=== PATIENT | male | born 1985 | race Caucasian/White ===

== ENCOUNTER 2016-05-26 20:17 | Emergency (ER) | payer OTHER ==
[~2016-05-26 20:17] MED LIST: AMOX-366 PO; CHLO60LI TP; HYDR25CA PO; LORA10CA PO; METH40TA2 PO; ONDA4VIA27 PO
[2016-05-26 20:21] VITALS: BP 143/92; PULSE 101; RESP 18; O2SAT 100
--- NOTE | 2016-05-26 20:43 | ED.REPORT ---
HPI-Extremity Problem Upper Date of Service May 26, 2016 ED Provider: Harvey Davis MD 30 year old male presents to the ED due to L arm pain/swelling this morning when he woke up. He reports tingling to the arm. He denies any known injury but thinks he may slept on the arm weird. Pt admits to feeling warm. Pt has a history of drug abuse but denies any recent IV or IM drug use. Nursing Notes Stated Complaint: PAIN IN LEFT ARM Chief Complaint: Extremity Trauma Nursing Notes Reviewed: Yes Allergies: Coded Allergies: codeine (Verified Adverse Reaction, Unknown, MOTHER SAYS, 04/16/16) Scheduled Amoxicillin/Clav K 875-125 mg (Augmentin 875-125 mg) 1 Each Tablet 1 TABLET PO BID Chlorhexidine Gluconate (Hand Wash) 2 % Liquid 60 ML TP DAILY Loratadine (Claritin) 10 Mg Capsule 10 MG PO DAILY Methadone (Methadone) 40 Mg Tablet.kelly 65 MG PO DAILY Scheduled PRN Hydroxyzine Pamoate (Vistaril) 25 Mg Capsule 25 MG PO HS PRN PRN For Insomnia Ondansetron PF (Ondansetron PF) 2 Mg/Ml Ml 4-8 MG PO Q4H PRN PRN For Nausea/ Vomiting General Time Seen by MD: 20:36 Chief Complaint Other (L arm pain) Hx Obtained From: Patient Arrived By: Walk-in Onset Occurred: 17 - 20 hours ago Symptom Duration: Since onset Location: : Arm left Quality: Painful Severity: Current: Moderate Associated with: Reports: Swelling, Denies: Vomiting Pertinent Negative: Relieved by nothing Past Medical History Past Medical History Nephrolithiasis methamphetamine abuse IVDA Hepatitis C with a history of an acute hepatitis infection Denies: Coronary artery disease, Diabetes mellitus Past Surgical History Denies Smoking History Current Every Day Smoker, Heavy Tobacco Smoker Social History 170 days clean from IV heroin as of 04/14/2016, Last used meth 2 weeks ago Alcohol Use: "Social" Drug Use: In recovery, IV drugs, Meth Other Social History: Good social support, Lives with children, Local resident Ambulatory Status Independent Review of Systems Basic Review of Systems Eyes: Vision NL, No discharge ENT: Hearing NL, No pain, No nasal congestion, No pharyngeal pain Psychiatric: Normal thought content Constitutional: Denies: Fever Musculoskeletal: Reports: Extremity pain, Extremity swelling, Denies: Neck pain Skin: Denies Diaphoresis, Denies Rash Complete sys rev & neg: except as marked. Physical Exam Initial Vital Signs Vital Signs (First) Date Time Temp Pulse Resp B/P Pulse Ox O2 Delivery O2 Flow Rate FiO2 05/26/16 20:21 37.2 101 18 143/92 100 Room Air Initial VS: Reviewed General/Constitutional: Well-developed, Well-nourished Head / Eyes: Atraumatic, Normocephalic, PERRL ENT: Conjunctiva normal, No scleral icterus Neck: Full range of motion Respiratory: No respiratory distress Cardiovascular: Intact distal pulses Lower Extremities: Vascular intact, Neuro intact Skin: Warm, Dry Neurologic: Alert, Oriented Psychiatric: Mood/affect normal, Normal thought content Upper Extremity / MS: Atraumatic, No swelling, Non-tender, No erythema, No deformity, Neurologic intact, Vascular intact Good billboard poster strength bilat. No signs of trauma. No swelling or erythema to the RUE. Re-Eval/Medical Decision Med Decision/Clinical Course Patient is a 30-year-old male with a history of heroin and methamphetamine abuse who presents with vague symptoms of pain and tingling sensation in his left arm after sleeping on top of his left arm last night. Examination reveals that he is neurovascularly intact without any signs of abscess, soft tissue infection or acute traumatic injury. Strength is intact in the extremity in the distal fingertips are warm and well perfused. He has full range of motion of the arm and there is no evidence of septic arthritis or other acutely concerning process. He reports pins and needle sensation though there are no objective neurologic deficits. I suspect these experiencing some degree of peripheral neurapraxia due to sleeping on top of his arm. Patient was given ibuprofen here in the emergency department and advised to return right away should his symptoms fail to improve or worsen. Follow-up and return precautions were reviewed in detail and he was discharged in good condition. Re-Evaluation/Progress : Time of Eval: 21:59 Re-Evaluation/Progress Note: No imaging indicated. Pt agrees. Pt declines pain medications. Discussed plan for discharge and follow up. All questions addressed. Counseled Regarding: Diagnosis, Need for follow-up, When/why to return to ED Discharge & Departure Impression: Primary Impression: Neuropraxia of left upper extremity Encounter type: initial encounter Qualified Code: S44.92XA - Injury of unspecified nerve at shoulder and upper arm level, left arm, initial encounter Additional Impression: Left arm pain Disposition: Home Discharge Condition All VS Reviewed: Yes Condition: Improved Additional Instructions: Thank you for seeking care at [facility] emergency room. It is difficult for us to make definitive diagnoses in the ED but we believe that you are experiencing neurapraxia of the left arm. Our primary goal today in the ED was to evaluate you for any life-threatening conditions. Your evaluation was reassuring. You can take ibuprofen for pain. You should follow-up with your primary doctor in the next week. You should return to the ER if your symptoms do not improve. Thank you for letting us partake in your care today. Referrals: [facility] (PCP) Scribe Attestation Portions of this note were transcribed by Dilcia Iyer. I, (Dr. Davis) personally performed the history, physical exam and medical decision-making; I reviewed and confirmed the accuracy of the information in the transcribed note. Signed by: Dilcia Iyer. Dereje, 05/26/2016, [id number] Harvey Davis MD May 26, 2016 20:42 Dilcia Iyer May 26, 2016 21:55
[2016-05-26 22:12] VITALS: BP 137/89; PULSE 101; RESP 18; O2SAT 100
== END 2016-05-26 22:13 | disposition home or self-care (01) ==
LOC: SED 20:17
DX: S44.92XA Injury of unspecified nerve at shoulder and upper arm level, left arm, initial encounter (principal); X58.XXXA Exposure to other specified factors, initial encounter; Y93.84 Activity, sleeping; Y92.9 Unspecified place or not applicable; Y99.8 Other external cause status; F17.200 Nicotine dependence, unspecified, uncomplicated; Z88.5 Allergy status to narcotic agent